=== PATIENT | female | born 1990 | race Caucasian/White ===

== ENCOUNTER 2018-10-31 10:09 | Emergency (ER) | payer SELFPAY ==
[2018-10-31] MEDS ORDERED: KETOROLAC 30 MG/ML INJ ONE (11:00)
[2018-10-31 11:14] LABS: ALT/SGPT 17 U/L (12-78); AST/SGOT 11 U/L (15-37); Albumin 3.5 g/dL (3.4-5.0); Alkaline Phosphatase 69 U/L (45-117); BUN Blood Urea Nitrogen 16 mg/dL (7-18); Bicarbonate 25 mmol/L (21-32); Bilirubin Direct 0.2 mg/dL (0-0.2); Bilirubin Total 0.8 mg/dL (0.2-1.0); Glucose Level 90 mg/dL (74-106); Lipase 82 U/L (73-393); Potassium 4.1 mmol/L (3.5-5.1); Protein, Total 7.7 g/dL (6.4-8.2); Sodium Level 138 mmol/L (136-145)
[2018-10-31 11:20] LABS: Urine Bacteria <20 /HPF (<20); Urine RBC NONE SEEN /HPF (NONE SEEN)
[2018-10-31 11:21] LABS: Urine Culture Reflex Order NOT NEEDED
[2018-10-31 11:23] LABS: Urine Blood NEGATIVE (NEG); Urine Glucose NEGATIVE (NEG); Urine Protein NEGATIVE (NEG); Urine Specific Gravity 1.025 (1.005-1.030); Urine pH 6.5 (5.0-7.0)
[2018-10-31 11:28] LABS: Absolute Lymphocytes (CBC) 1.7 K/uL (0.7-4.9); Absolute Monocytes 0.7 K/uL (0.1-1.3); Absolute Neutrophil 6.8 K/uL (1.8-8.0); Basophils % 0.5 % (0-1.3); Hematocrit 38.8 % (36.0-45.0); Lymphocytes % 18.3 % (15.3-44.8); MCH 30.4 pg (27.0-35.0); Monocytes % 7.4 % (3.3-12.3); RBC Red Blood Cell Count 4.46 M/uL (3.86-4.86)
--- NOTE | 2018-10-31 11:46 | RAD REPORT ---
EXAM DESCRIPTION: CTAbdomen Pelvis W Contrast - 10/31/2018 11:28 am CLINICAL HISTORY: Abdominal pain. rlq no oc;Abd pain COMPARISON: Stone Protocol dated 05/21/2017 TECHNIQUE: Biphasic CT imaging of the abdomen and pelvis was performed with 100 ml non-ionic IV cont rast. All CT scans are performed using dose optimization technique as appropriate and may include automated exposure control or mA/KV adjustment according to patient size. FINDINGS: The lung bases are clear. The liver, spleen, pancreas, adrenal glands and kidneys are within normal limits. 7 mm cyst is presen t lateral right kidney. No bowel obstruction, free air, free fluid or abscess. Subtle fat stranding is seen in the right lowe r quadrant adjacent to the cecum. The appendix is normal. No evidence of significant lymphadenopathy . No suspicious bony findings. Bilateral adnexal cystic lesions are present, largest on the left measur ing 3.7 cm. IMPRESSION: Subtle inflammatory changes are seen in the fat adjacent to the cecum. This may be relat ed to mild/early cecal inflammation/ typhlitis. No evidence of appendicitis.
--- NOTE | 2018-10-31 13:37 | ER ---
Nurse's Notes [facility] Name: Angle Goddard Age: 27 yrs Sex: Female : 1990 Arrival Date: 10/31/2018 Time: 10:10 Bed 17 Private MD: Diagnosis: Lower abdominal pain, unspecified Presentation: 10/31 10:38 Presenting complaint: Patient states: RLQ pain since yesterday. Transition of care: ss patient was not received from another setting of care. Onset of symptoms was September 30, 2018. Risk Assessment: Do you want to hurt yourself or someone else? Patient reports no desire to harm self or others. Initial Sepsis Screen: Does the patient meet any 2 criteria? No. Patient's initial sepsis screen is negative. Does the patient have a suspected source of infection? No. Patient's initial sepsis screen is negative. Care prior to arrival: None. 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 - Social history:: Smoking status: Patient/guardian denies using tobacco, Smoking status: . - Ebola Screening: : Patient denies exposure to infectious person Patient denies travel to an Ebola-affected area in the 21 days before illness onset Patient denies travel to an Ebola-affected area in the 21 days before illness onset. Screenin:39 Abuse screen: Denies threats or abuse. Nutritional screening: No deficits noted. tw2 Tuberculosis screening: No symptoms or risk factors identified. Fall Risk None identified. Assessment: 10:35 General: Appears in no apparent distress. Behavior is calm, cooperative, appropriate tw2 for age. Pain: Complains of pain in right lower quadrant. Neuro: Level of Consciousness is awake, alert, obeys commands, Oriented to person, place, time, situation. Cardiovascular: Heart tones S1 S2 Patient's skin is warm and dry. Respiratory: Airway is patent Respiratory effort is even, unlabored, Respiratory pattern is regular, symmetrical, Breath sounds are clear bilaterally. GI: Abdomen is flat, Bowel sounds present X 4 quads. Reports lower abdominal pain. : No signs and/or symptoms were reported regarding the genitourinary system. EENT: No signs and/or symptoms were reported regarding the EENT system. Derm: No signs and/or symptoms reported regarding the dermatologic system. Musculoskeletal: Range of motion: intact in all extremities. 12:30 Reassessment: Patient appears in no apparent distress at this time. No changes from tw2 previously documented assessment. Patient and/or family updated on plan of care and expected duration. Pain level reassessed. Patient is alert, oriented x 3, equal unlabored respirations, skin warm/dry/pink. 13:24 Reassessment: Patient appears in no apparent distress at this time. No changes from tw2 previously documented assessment. Patient and/or family updated on plan of care and expected duration. Pain level reassessed. Patient is alert, oriented x 3, equal unlabored respirations, skin warm/dry/pink. 13:43 Reassessment: Patient appears in no apparent distress at this time. No changes from tw2 previously documented assessment. Patient and/or family updated on plan of care and expected duration. Pain level reassessed. Patient is alert, oriented x 3, equal unlabored respirations, skin warm/dry/pink. General: Appears Behavior is. Vital Signs: 10:38 BP 122 / 86; Pulse 75; Resp 16; Temp 97.6(TE); Pulse Ox 98% on R/A; Weight 95.71 kg; Height 5 ft. 5 in. (165.10 cm); Pain 8/10; 12:30 BP 103 / 72; Pulse 61; Resp 17; Pulse Ox 99% on R/A; tw2 13:22 BP 106 / 76; Pulse 67; Resp 17; Pulse Ox 100% on R/A; tw2 10:38 Body Mass Index 35.11 (95.71 kg, 165.10 cm) ED Course: 10:10 Patient arrived in ED. rg4 10:36 Glenroy Miles MD is Attending Physician. gs 10:39 Nora Post RN is Primary Nurse. tw2 10:39 Triage completed. ss 10:39 Bed in low position. Call light in reach. Pulse ox on. NIBP on. tw2 10:46 Inserted saline lock: 22 gauge in right antecubital area, using aseptic technique. tw2 Blood collected. IV discontinued, intact, bleeding controlled, No redness/swelling at site. Pressure dressing applied. 11:29 CT completed. Patient tolerated procedure well. Patient moved to MI via wheelchair. Patient moved back from MI. 13:22 Arm band placed on. tw2 13:23 Urine Microscopic Only Sent. tw2 13:42 No provider procedures requiring assistance completed. tw2 Administered Medications: 10:55 Drug: TORadol 15 mg Route: IVP; Site: right antecubital; tw2 13:23 Follow up: Response: No adverse reaction tw2 Outcome: 13:37 Discharge ordered by . 13:43 Discharged to home ambulatory, with significant other. tw2 13:43 Condition: stable 13:43 Discharge instructions given to patient, significant other, Instructed on discharge instructions, follow up and referral plans. medication usage, Demonstrated understanding of instructions, follow-up care, medications, Prescriptions given X 2. 13:44 Patient left the ED. tw2 Signatures: Autumn Patel Shelby, RN RN Nora Post RN RN tw2 Sandy Gold 4 Glenroy Miles MD MD
--- NOTE | 2018-10-31 13:37 | EDPHYS ---
Physician Documentation [facility] Name: Angle Goddard Age: 27 yrs Sex: Female : 1990 Arrival Date: 10/31/2018 Time: 10:10 Bed 17 Private MD: ED Physician Glenroy Miles HPI: 10/31 13:26 This 27 yrs old Female presents to ER via Ambulatory with complaints of Low gs Abdominal Pain. 13:33 The patient presents with abdominal pain right lower quadrant. Onset: The gs symptoms/episode began/occurred yesterday. The symptoms do not radiate. Associated signs and symptoms: Pertinent negatives: nausea and vomiting, diarrhea, dysuria, fever. The symptoms are described as achy, crampy. Modifying factors: the symptoms are aggravated by coughing. Severity of pain: At its worst the pain was moderate in the emergency department the pain is unchanged. The patient has not experienced similar symptoms in the past. The patient has not recently seen a physician. 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 - Social history:: Smoking status: Patient/guardian denies using tobacco, Smoking status: . - Ebola Screening: : Patient denies exposure to infectious person Patient denies travel to an Ebola-affected area in the 21 days before illness onset Patient denies travel to an Ebola-affected area in the 21 days before illness onset. ROS: 13:33 All other systems are negative. gs Exam: 13:33 Head/Face: Normocephalic, atraumatic. Eyes: Pupils equal round and reactive to light, gs extra-ocular motions intact. Lids and lashes normal. Conjunctiva and sclera are non-icteric and not injected. Cornea within normal limits. Periorbital areas with no swelling, redness, or edema. ENT: Nares patent. No nasal discharge, no septal abnormalities noted. Tympanic membranes are normal and external auditory canals are clear. Oropharynx with no redness, swelling, or masses, exudates, or evidence of obstruction, uvula midline. Mucous membranes moist. Neck: Trachea midline, no thyromegaly or masses palpated, and no cervical lymphadenopathy. Supple, full range of motion without nuchal rigidity, or vertebral point tenderness. No Meningismus. Chest/axilla: Normal chest wall appearance and motion. Nontender with no deformity. No lesions are appreciated. Cardiovascular: Regular rate and rhythm with a normal S1 and S2. No gallops, murmurs, or rubs. Normal PMI, no JVD. No pulse deficits. Respiratory: Lungs have equal breath sounds bilaterally, clear to auscultation and percussion. No rales, rhonchi or wheezes noted. No increased work of breathing, no retractions or nasal flaring. Back: No spinal tenderness. No costovertebral tenderness. Full range of motion. Skin: Warm, dry with normal turgor. Normal color with no rashes, no lesions, and no evidence of cellulitis. MS/ Extremity: Pulses equal, no cyanosis. Neurovascular intact. Full, normal range of motion. Neuro: Awake and alert, GCS 15, oriented to person, place, time, and situation. Cranial nerves II-XII grossly intact. Motor strength 5/5 in all extremities. Sensory grossly intact. Cerebellar exam normal. Normal gait. 13:33 Constitutional: The patient appears alert, awake, uncomfortable. 13:33 Abdomen/GI: Palpation: moderate abdominal tenderness, in the right lower quadrant, rebound tenderness, is not appreciated. Vital Signs: 10:38 BP 122 / 86; Pulse 75; Resp 16; Temp 97.6(TE); Pulse Ox 98% on R/A; Weight 95.71 kg; ss Height 5 ft. 5 in. (165.10 cm); Pain 8/10; 12:30 BP 103 / 72; Pulse 61; Resp 17; Pulse Ox 99% on R/A; tw2 13:22 BP 106 / 76; Pulse 67; Resp 17; Pulse Ox 100% on R/A; tw2 10:38 Body Mass Index 35.11 (95.71 kg, 165.10 cm) MDM: 10:44 Patient medically screened. 13:33 Differential diagnosis: appendicitis, bowel obstruction, non-specific abd pain, gs pancreatitis, Peritonitis. Data reviewed: vital signs, nurses notes. Counseling: I had a detailed discussion with the patient and/or guardian regarding: the historical points, exam findings, and any diagnostic results supporting the discharge/admit diagnosis, lab results, radiology results. Response to treatment: the patient's symptoms have markedly improved after treatment. Physician consultation: Bartolo Johnston MD and will see patient in consult. ED course: discussed possibility of early appy and need for surgery, also possible of early caecitis and need for abx. pt understands riskd and benefits of hospitalization, prefers going home taking abx coming for reexam. giving warnings s/s to return. 10/31 10:44 Order name: Urine Microscopic Only 10/31 10:45 Order name: Basic Metabolic Panel 10/31 10:45 Order name: CBC with Diff 10/31 10:45 Order name: Hepatic Function 10/31 10:45 Order name: Lipase 10/31 11:14 Order name: Urine Dipstick--Ancillary (enter results) 10/31 11:14 Order name: Urine --Ancillary (enter results) 10/31 11:14 Order name: Basic Metabolic Panel; Complete Time: 12:42 EDNV 10/31 11:14 Order name: Liver (Hepatic) Function; Complete Time: 12:42 EDNV 10/31 11:14 Order name: Lipase; Complete Time: 12:42 EDNV 10/31 11:21 Order name: Urine Microscopic Only; Complete Time: 12:42 EDNV 10/31 11:23 Order name: Urine --Ancillary; Complete Time: 12:42 EDNV 10/31 11:23 Order name: Urine Dipstick-Ancillary; Complete Time: 12:42 EDNV 10/31 11:30 Order name: CBC with Automated Diff; Complete Time: 12:42 EDNV 10/31 10:44 Order name: Urine Test (obtain specimen); Complete Time: 13:23 10/31 10:44 Order name: Urine Dipstick-Ancillary (obtain specimen); Complete Time: 13:24 10/31 10:45 Order name: IV Saline Lock; Complete Time: 11:00 10/31 10:45 Order name: Labs collected and sent; Complete Time: 11:00 10/31 10:45 Order name: CT Abd/Pelvis - W/Contrast 10/31 11:47 Order name: CT; Complete Time: 12:42 EDMS Administered Medications: 10:55 Drug: TORadol 15 mg Route: IVP; Site: right antecubital; tw2 13:23 Follow up: Response: No adverse reaction tw2 Disposition: 10/31/18 13:37 Discharged to Home. Impression: Lower abdominal pain, unspecified. - Condition is Stable. - Discharge Instructions: Abdominal Pain, Adult. - Prescriptions for Flagyl 500 mg Oral Tablet - take 1 tablet by ORAL route every 6 hours for 7 days; 28 tablet. Keflex 500 mg Oral Capsule - take 1 capsule by ORAL route every 6 hours for 7 days; 28 capsule. - Work release form, Family Work Release, Medication Reconciliation Form, Thank You Letter, Antibiotic Education, Prescription Opioid Use form. - Follow up: Private Physician; When: 1 - 2 days; Reason: Re-evaluation by your physician. Signatures: Dispatcher [employer] EDNV Cassandra Andrews RN RN Nora Post RN RN tw2 Glenroy Miles MD MD Corrections: (The following items were deleted from the chart) 13:44 13:37 10/31/2018 13:37 Discharged to Home. Impression: Lower abdominal pain, tw2 unspecified. Condition is Stable. Forms are Work release form, Family Work Release, Medication Reconciliation Form, Thank You Letter, Antibiotic Education, Prescription Opioid Use. Follow up: Private Physician; When: 1 - 2 days; Reason: Re-evaluation by your physician.
[2018-10-31 13:57] VITALS: TEMP 97.6
[2018-10-31 13:59] VITALS: BP 106/76; O2SAT 100
== END 2018-10-31 13:44 | disposition home or self-care (01) ==
LOC: ER 10:09
DX: R10.31 Right lower quadrant pain (principal)
CPT/HCPCS: 36415; 74177; 80048; 80076; 81003; 81015; 81025; 83690; 85025; 96374; 99284; Q9967

== ENCOUNTER 2018-11-01 19:03 | Emergency (ER) | payer SELFPAY ==
[2018-11-01 19:53] LABS: Urine Bacteria <20 /HPF (<20); Urine Mucus SLIGHT /HPF (NONE SEEN); Urine RBC <5 /HPF (NONE SEEN)
[2018-11-01 19:54] LABS: Urine Culture Reflex Order REFLEXED
[2018-11-01 20:01] LABS: Absolute Lymphocytes (CBC) 1.8 K/uL (0.7-4.9); Absolute Neutrophil 5.2 K/uL (1.8-8.0); Basophils % 0.7 % (0-1.3); Eosinophils % 2.8 % (0-4.4); Hematocrit 39.1 % (36.0-45.0); Lymphocytes % 21.9 % (15.3-44.8); MCV 87.1 fL (80-100); MPV 8.7 fL (7.6-11.3); RBC Red Blood Cell Count 4.49 M/uL (3.86-4.86)
[2018-11-01] MEDS ORDERED: CEFOXITIN/SWI 1gm 1 GM/10 ML SYR ONE (20:10)
[2018-11-01 20:15] LABS: ALT/SGPT 10 U/L (12-78); AST/SGOT 10 U/L (15-37); Albumin 3.5 g/dL (3.4-5.0); Alkaline Phosphatase 64 U/L (45-117); BUN Blood Urea Nitrogen 11 mg/dL (7-18); Bicarbonate 28 mmol/L (21-32); Bilirubin Direct 0.2 mg/dL (0-0.2); Bilirubin Total 0.6 mg/dL (0.2-1.0); Glucose Level 73 mg/dL (74-106); Lipase 85 U/L (73-393); Potassium 3.9 mmol/L (3.5-5.1); Protein, Total 7.5 g/dL (6.4-8.2); Sodium Level 142 mmol/L (136-145)
[2018-11-01 20:26] LABS: Urine Blood NEGATIVE (NEG); Urine Glucose NEGATIVE (NEG); Urine Protein NEGATIVE (NEG); Urine Specific Gravity >1.030 (1.005-1.030); Urine pH 5.5 (5.0-7.0)
--- NOTE | 2018-11-01 21:01 | RAD REPORT ---
EXAM DESCRIPTION: CT - Abdomen Pelvis W Contrast - 11/01/2018 8:38 pm CLINICAL HISTORY: Abdominal pain with nausea. COMPARISON: 10/31/2018 TECHNIQUE: Computed axial tomography of the abdomen pelvis was obtained. 100 cc Isovue-300 was admin istered intravenously. Oral contrast was not requested which limits evaluation of bowel. All CT scans are performed using dose optimization technique as appropriate and may include automated exposure control or mA/KV adjustment according to patient size. FINDINGS: The liver, spleen, pancreas, adrenal and kidneys appear unremarkable. Small right renal cy st noted. The appendix is normal Mild stranding adjacent to the cecum. There is a probable subtle 16 millimeter fatty mass. This likel y represents epiploic appendagitis Bilateral ovarian cystic mass is again demonstrated with small amount of free fluid Tiny umbilical hernia IMPRESSION: Cecal epiploic appendagitis suspected
--- NOTE | 2018-11-01 21:26 | ER ---
Nurse's Notes [facility] Name: Angle Goddard Age: 27 yrs Sex: Female : 1990 Arrival Date: 11/01/2018 Time: 19:07 Bed 24 Private MD: Diagnosis: Lower abdominal pain, unspecified Presentation: 11/01 19:16 Presenting complaint: Patient states: abd pain increased from yesterday. pt seen in ER ak1 yesterday given flagyl and keflex, pt stated increased pain today. Transition of care: patient was not received from another setting of care. Onset of symptoms is unknown. Risk Assessment: Do you want to hurt yourself or someone else? Patient reports no desire to harm self or others. Initial Sepsis Screen: Does the patient meet any 2 criteria? No. Patient's initial sepsis screen is negative. Does the patient have a suspected source of infection? No. Patient's initial sepsis screen is negative. Care prior to arrival: None. 19:16 Method Of Arrival: Ambulatory ak1 19:16 Acuity: LICO 3 ak1 Triage Assessment: 19:17 General: Appears uncomfortable. ak1 21:59 General: Behavior is calm, cooperative. Pain: Complains of pain in abdomen. 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 - Social history:: Smoking status: Patient/guardian denies using tobacco. - Ebola Screening: : No symptoms or risks identified at this time. Screenin:59 Abuse screen: Denies threats or abuse. Denies injuries from another. Nutritional rv screening: No deficits noted. Tuberculosis screening: No symptoms or risk factors identified. Fall Risk None identified. Assessment: 21:59 GI: rv Vital Signs: 19:17 BP 107 / 76; Pulse 72; Resp 18; Temp 98.2; Pulse Ox 97% on R/A; Weight 95.25 kg (R); ak1 Height 5 ft. 5 in. (165.10 cm) (R); Pain 9/10; 21:42 BP 100 / 64; Pulse 70; Resp 16; Pulse Ox 99% on R/A; mt 19:17 Body Mass Index 34.95 (95.25 kg, 165.10 cm) ak1 ED Course: 19:07 Patient arrived in ED. ds1 19:16 Triage completed. ak1 19:17 Arm band placed on Patient placed in an exam room, on a stretcher, Patient notified of ak1 wait time. 19:23 Catie Mcmanus, RN is Primary Nurse. 19:25 Glenroy Miles MD is Attending Physician. 20:11 Radiology exam delayed due to lab results not completed at this time. (BUN/Creatinine) fl test not completed at this time. 20:38 CT Abd/Pelvis - W/Contrast In Process Unspecified. EDMS 20:43 CT completed. Patient tolerated procedure well. Patient moved back from CT. fl 21:59 No provider procedures requiring assistance completed. IV discontinued, bleeding rv controlled, No redness/swelling at site. Pressure dressing applied. 22:00 Patient has correct armband on for positive identification. Bed in low position. Call rv light in reach. Side rails up X 1. Pulse ox on. NIBP on. Administered Medications: 20:04 Drug: cefOXitin 1 grams Route: IVPB; Infused Over: 30 mins; Site: right antecubital; aj 21:58 Follow up: IV Status: Completed infusion rv 21:57 Drug: TORadol 30 mg Route: IVP; Site: right antecubital; rv 21:58 Follow up: Response: Medication administered at discharge. rv Outcome: 21:25 Discharge ordered by MD. 21:59 Discharged to home ambulatory. rv 21:59 Condition: stable 21:59 Discharge instructions given to patient, Instructed on discharge instructions, follow up and referral plans. medication usage, Demonstrated understanding of instructions, follow-up care, medications, Prescriptions given X 2. 22:00 Patient left the ED. rv Signatures: Dispatcher [employer] EDMS Catie Mcmanus, RN Ivonne Robbins ds Alicia Lind RN RN [facility] Percy Tan Moriah hi Glenroy Miles MD MD Curtis Joiner RN RN rv
--- NOTE | 2018-11-01 21:26 | EDPHYS ---
Physician Documentation [facility] Name: Angle Goddard Age: 27 yrs Sex: Female : 1990 Arrival Date: 11/01/2018 Time: 19:07 Bed 24 Private MD: ED Physician Glenroy Miles HPI: 11/02 19:46 This 27 yrs old Female presents to ER via Ambulatory with complaints of gs Abdominal Pain. 19:46 Onset: The symptoms/episode began/occurred 2 day(s) ago, and became persistent. gs Associated signs and symptoms: Pertinent positives: nausea, Pertinent negatives: fever. The symptoms are described as crampy. Severity of pain: At its worst the pain was moderate in the emergency department the pain is unchanged. The patient has been recently seen at the [facility] Emergency Department, yesterday. 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 - Social history:: Smoking status: Patient/guardian denies using tobacco. - Ebola Screening: : No symptoms or risks identified at this time. ROS: 11/02 19:46 All other systems are negative. gs Exam: 19:46 Head/Face: Normocephalic, atraumatic. Eyes: Pupils equal round and reactive to light, gs extra-ocular motions intact. Lids and lashes normal. Conjunctiva and sclera are non-icteric and not injected. Cornea within normal limits. Periorbital areas with no swelling, redness, or edema. ENT: Nares patent. No nasal discharge, no septal abnormalities noted. Tympanic membranes are normal and external auditory canals are clear. Oropharynx with no redness, swelling, or masses, exudates, or evidence of obstruction, uvula midline. Mucous membranes moist. Neck: Trachea midline, no thyromegaly or masses palpated, and no cervical lymphadenopathy. Supple, full range of motion without nuchal rigidity, or vertebral point tenderness. No Meningismus. Chest/axilla: Normal chest wall appearance and motion. Nontender with no deformity. No lesions are appreciated. Cardiovascular: Regular rate and rhythm with a normal S1 and S2. No gallops, murmurs, or rubs. Normal PMI, no JVD. No pulse deficits. Respiratory: Lungs have equal breath sounds bilaterally, clear to auscultation and percussion. No rales, rhonchi or wheezes noted. No increased work of breathing, no retractions or nasal flaring. Back: No spinal tenderness. No costovertebral tenderness. Full range of motion. Skin: Warm, dry with normal turgor. Normal color with no rashes, no lesions, and no evidence of cellulitis. MS/ Extremity: Pulses equal, no cyanosis. Neurovascular intact. Full, normal range of motion. Neuro: Awake and alert, GCS 15, oriented to person, place, time, and situation. Cranial nerves II-XII grossly intact. Motor strength 5/5 in all extremities. Sensory grossly intact. Cerebellar exam normal. Normal gait. 19:46 Constitutional: The patient appears alert, awake, uncomfortable. 19:46 Abdomen/GI: Palpation: moderate abdominal tenderness, in the right lower quadrant, rebound tenderness, is not appreciated. Vital Signs: 11/01 19:17 BP 107 / 76; Pulse 72; Resp 18; Temp 98.2; Pulse Ox 97% on R/A; Weight 95.25 kg (R); ak1 Height 5 ft. 5 in. (165.10 cm) (R); Pain 9/10; 21:42 BP 100 / 64; Pulse 70; Resp 16; Pulse Ox 99% on R/A; mt 19:17 Body Mass Index 34.95 (95.25 kg, 165.10 cm) ak1 MDM: 19:35 Patient medically screened. 11/02 19:46 Differential diagnosis: appendicitis, bowel obstruction, non-specific abd pain. Data reviewed: vital signs, nurses notes, lab test result(s), radiologic studies. Physician consultation: Ricardo Parikh MD regarding patient's condition, would like further tests performed, CT scan, pre-operative labs. 19:46 Counseling: I had a detailed discussion with the patient and/or guardian regarding: the historical points, exam findings, and any diagnostic results supporting the discharge/admit diagnosis, radiology results, the need for outpatient follow up. Response to treatment: the patient's symptoms have markedly improved after treatment, and as a result, I will discharge patient. 11/01 19:16 Order name: Urine Culture snw 11/01 19:16 Order name: Urine Microscopic Only; Complete Time: 20:54 snw 11/01 19:38 Order name: Basic Metabolic Panel; Complete Time: 20:54 gs 11/01 19:38 Order name: CBC with Diff; Complete Time: 20:54 gs 11/01 19:38 Order name: Hepatic Function; Complete Time: 20:54 gs 11/01 19:38 Order name: Lipase; Complete Time: 20:54 gs 11/01 19:16 Order name: Urine Test (obtain specimen); Complete Time: 19:26 snw 11/01 19:16 Order name: Urine Dipstick-Ancillary (obtain specimen); Complete Time: 19:26 snw 11/01 19:38 Order name: IV Saline Lock; Complete Time: 19:47 gs 11/01 19:38 Order name: CT Abd/Pelvis - W/Contrast; Complete Time: 21:03 gs 11/01 19:54 Order name: Urine Dipstick--Ancillary (enter results); Complete Time: 20:54 ms 11/01 19:54 Order name: Urine --Ancillary (enter results); Complete Time: 20:54 ms 11/01 19:38 Order name: Labs collected and sent; Complete Time: 19:47 gs Administered Medications: 11/01 20:04 Drug: cefOXitin 1 grams Route: IVPB; Infused Over: 30 mins; Site: right antecubital; aj 21:58 Follow up: IV Status: Completed infusion rv 21:57 Drug: TORadol 30 mg Route: IVP; Site: right antecubital; rv 21:58 Follow up: Response: Medication administered at discharge. rv Disposition: 11/01/18 21:25 Discharged to Home. Impression: Lower abdominal pain, unspecified. - Condition is Stable. - Discharge Instructions: Abdominal Pain, Adult. - Prescriptions for Naprosyn 500 mg Oral Tablet - take 1 tablet by ORAL route 2 times per day take with food; 20 tablet. Tylenol- Codeine #4 300-60 mg Oral Tablet - take 1 tablet by ORAL route every 6 hours As needed; 10 tablet. - Medication Reconciliation Form, Thank You Letter, Antibiotic Education, Prescription Opioid Use, Work release form form. - Follow up: Private Physician; When: 2 - 3 days; Reason: Re-evaluation by your physician. Signatures: Dispatcher [employer] Catie Busby, RN RN Mame Thompson, DANIELA-C GATHERING MACHINE SETTER-Alicia Francois RN RN ak1 Glenroy Miles MD MD gs Curtis Joiner RN RN rv Corrections: (The following items were deleted from the chart) 22:00 21:25 11/01/2018 21:25 Discharged to Home. Impression: Lower abdominal pain, rv unspecified. Condition is Stable. Forms are Medication Reconciliation Form, Thank You Letter, Antibiotic Education, Prescription Opioid Use. Follow up: Private Physician; When: 2 - 3 days; Reason: Re-evaluation by your physician. gs
[2018-11-01] MEDS ORDERED: KETOROLAC 30 MG/ML INJ ONE (21:57)
[2018-11-01 22:22] VITALS: TEMP 98.2
[2018-11-01 22:23] VITALS: BP 100/64; O2SAT 99
== END 2018-11-01 22:00 | disposition home or self-care (01) ==
LOC: ER 19:03
DX: R10.31 Right lower quadrant pain (principal)
CPT/HCPCS: 36415; 74177; 80048; 80076; 81003; 81015; 81025; 83690; 85025; 87086; 87088; 96365; 96366; 96375; 99284; Q9967

== ENCOUNTER 2019-03-26 22:16 | Emergency (ER) | payer SELFPAY ==
--- NOTE | 2019-03-26 23:27 | EDPHYS ---
Physician Documentation [facility] Name: Angle Goddard Age: 28 yrs Sex: Female : 1990 Arrival Date: 03/26/2019 Time: 22:19 Bed 11 Private MD: ED Physician Wade Trotter HPI: 03/26 23:26 This 28 yrs old Female presents to ER via Ambulatory with complaints of Ear pm1 Pain. 23:26 The patient presents with pain. The complaints affect the right ear. Onset: The pm1 symptoms/episode began/occurred 5 day(s) ago. Modifying factors: The symptoms are alleviated by nothing, the symptoms are aggravated by nothing. Associated signs and symptoms: Pertinent negatives: fever, rhinorrhea, sore throat. Severity of symptoms: in the emergency department the symptoms are worse. The patient has experienced similar episodes in the past, a few times. The patient has not recently seen a physician. Historical: - Allergies: 22:24 No Known Allergies; la1 - PMHx: 22:24 Asthma; la1 - Immunization history:: Adult Immunizations up to date. - Social history:: Smoking status: Patient/guardian denies using tobacco. - Ebola Screening: : No symptoms or risks identified at this time. ROS: 23:26 Constitutional: Negative for fever, chills, and weight loss, Eyes: Negative for injury, pm1 pain, redness, and discharge. 23:26 Neck: Negative for injury, pain, and swelling, Cardiovascular: Negative for chest pain, palpitations, and edema, Respiratory: Negative for shortness of breath, cough, wheezing, and pleuritic chest pain, Abdomen/GI: Negative for abdominal pain, nausea, vomiting, diarrhea, and constipation, Back: Negative for injury and pain, : Negative for injury, bleeding, discharge, and swelling, MS/Extremity: Negative for injury and deformity, Skin: Negative for injury, rash, and discoloration, Neuro: Negative for headache, weakness, numbness, tingling, and seizure. 23:26 ENT: Positive for ear pain, Negative for drainage from ear(s), rhinorrhea, sinus congestion, sinus pain, sore throat, difficulty swallowing, difficulty handling secretions. Exam: 23:26 Constitutional: This is a well developed, well nourished patient who is awake, alert, pm1 and in no acute distress. Head/Face: Normocephalic, atraumatic. Eyes: Pupils equal round and reactive to light, extra-ocular motions intact. Lids and lashes normal. Conjunctiva and sclera are non-icteric and not injected. Cornea within normal limits. Periorbital areas with no swelling, redness, or edema. 23:26 Neck: Trachea midline, no thyromegaly or masses palpated, and no cervical lymphadenopathy. Supple, full range of motion without nuchal rigidity, or vertebral point tenderness. No Meningismus. Chest/axilla: Normal chest wall appearance and motion. Nontender with no deformity. No lesions are appreciated. Cardiovascular: Regular rate and rhythm with a normal S1 and S2. No gallops, murmurs, or rubs. Normal PMI, no JVD. No pulse deficits. Respiratory: Lungs have equal breath sounds bilaterally, clear to auscultation and percussion. No rales, rhonchi or wheezes noted. No increased work of breathing, no retractions or nasal flaring. Abdomen/GI: Soft, non-tender, with normal bowel sounds. No distension or tympany. No guarding or rebound. No evidence of tenderness throughout. Back: No spinal tenderness. No costovertebral tenderness. Full range of motion. Skin: Warm, dry with normal turgor. Normal color with no rashes, no lesions, and no evidence of cellulitis. MS/ Extremity: Pulses equal, no cyanosis. Neurovascular intact. Full, normal range of motion. 23:26 ENT: External ear(s): are unremarkable, Ear canal(s): erythema, that is minimal, of the right canal, swelling, that is minimal, of the right canal, TM's: bulging, on the right, erythema, that is moderate, on the right, Examination of the other ear shows no obvious abnormality, Nose: is normal, Mouth: is normal, Posterior pharynx: is normal. 23:26 Neuro: Orientation: is normal, Motor: is normal, moves all fours, Gait: is steady, at a normal pace, without difficulty. Vital Signs: 22:24 Pulse 61; Resp 16; Temp 97.8; Pulse Ox 98% on R/A; Weight 92.99 kg; Height 5 ft. 5 in. la1 (165.10 cm); 22:25 BP 107 / 69; la1 22:24 Body Mass Index 34.11 (92.99 kg, 165.10 cm) la1 MDM: 23:22 Patient medically screened. [facility] 23:26 Data reviewed: vital signs. Data interpreted: Pulse oximetry: on room air is 98 %. pm1 Interpretation: normal. Counseling: I had a detailed discussion with the patient and/or guardian regarding: the historical points, exam findings, and any diagnostic results supporting the discharge/admit diagnosis, the need for outpatient follow up, to return to the emergency department if symptoms worsen or persist or if there are any questions or concerns that arise at home. Administered Medications: No medications were administered Disposition: 03/26/19 23:27 Discharged to Home. Impression: Otitis media, unspecified, right ear, Unspecified otitis externa, right ear. - Condition is Stable. - Discharge Instructions: Ear Drops, Adult, Otitis Media, Adult, Otitis Externa. - Prescriptions for Cortisporin 3.5- 10,000-1 mg/mL-unit/mL-% Otic solution - instill 4 drop by OTIC route 4 times per day for 10 days; 1 bottle. Amoxicillin 500 mg Oral Capsule - take 1 capsule by ORAL route every 8 hours for 10 days; 30 tablet. Tramadol 50 mg Oral Tablet - take 1 tablet by ORAL route every 8 hours as needed; 12 tablet. - Medication Reconciliation Form, Thank You Letter, Antibiotic Education, Prescription Opioid Use form. - Work release form (03/27/19 07:09). ar5 - Follow up: Emergency Department; When: As needed; Reason: Worsening of condition. Follow up: Private Physician; When: 2 - 3 days; Reason: Recheck today's complaints, Continuance of care, Re-evaluation by your physician. - Problem is new. - Symptoms have improved. Addendum: 03/28/2019 11:16 Co-signature as Attending Physician, Wade Trotter MD I agree with the assessment and c reyes plan of care. Signatures: Wade Trotter MD MD cha Attema, Lee, RN RN la1 Mohan Martinez, HOISTER HOISTER pm1 Ruba Trinh ar5 Corrections: (The following items were deleted from the chart) 03/26 23:27 23:27 03/26/2019 23:27 Discharged to Home. Impression: Otitis media, unspecified, right pm1 ear; Unspecified otitis externa, right ear. Condition is Stable. Forms are Medication Reconciliation Form, Thank You Letter, Antibiotic Education, Prescription Opioid Use. Follow up: Emergency Department; When: As needed; Reason: Worsening of condition. Follow up: Private Physician; When: 2 - 3 days; Reason: Recheck today's complaints, Continuance of care, Re-evaluation by your physician. pm1 23:34 23:27 03/26/2019 23:27 Discharged to Home. Impression: Otitis media, unspecified, right la1 ear; Unspecified otitis externa, right ear. Condition is Stable. Forms are Medication Reconciliation Form, Thank You Letter, Antibiotic Education, Prescription Opioid Use. Follow up: Emergency Department; When: As needed; Reason: Worsening of condition. Follow up: Private Physician; When: 2 - 3 days; Reason: Recheck today's complaints, Continuance of care, Re-evaluation by your physician. Problem is new. Symptoms have improved. pm1
--- NOTE | 2019-03-26 23:27 | ER ---
Nurse's Notes [facility] Name: Angle Goddard Age: 28 yrs Sex: Female : 1990 Arrival Date: 03/26/2019 Time: 22:19 Bed 11 Private MD: Diagnosis: Otitis media, unspecified, right ear;Unspecified otitis externa, right ear Presentation: 03/26 22:24 Presenting complaint: Patient states: right ear pain for 5 days. Transition of care: la1 patient was not received from another setting of care. Onset of symptoms was March 26, 2019. Risk Assessment: Do you want to hurt yourself or someone else? Patient reports no desire to harm self or others. Initial Sepsis Screen: Does the patient meet any 2 criteria? No. Patient's initial sepsis screen is negative. Does the patient have a suspected source of infection? No. Patient's initial sepsis screen is negative. Care prior to arrival: None. 22:24 Method Of Arrival: Ambulatory la1 22:24 Acuity: LICO 5 la1 Historical: - Allergies: 22:24 No Known Allergies; la1 - PMHx: 22:24 Asthma; la1 - Immunization history:: Adult Immunizations up to date. - Social history:: Smoking status: Patient/guardian denies using tobacco. - Ebola Screening: : No symptoms or risks identified at this time. Screenin:25 Abuse screen: Denies threats or abuse. Nutritional screening: No deficits noted. la1 Tuberculosis screening: No symptoms or risk factors identified. Fall Risk None identified. Assessment: 22:24 General: Appears in no apparent distress. Behavior is calm, cooperative. Pain: la1 Complains of pain in right ear. Neuro: Level of Consciousness is awake, alert, obeys commands, Oriented to person, place, time, situation. Cardiovascular: Patient's skin is warm and dry. Respiratory: Airway is patent Respiratory effort is even, unlabored, Respiratory pattern is regular, symmetrical. GI: No signs and/or symptoms were reported involving the gastrointestinal system. : No signs and/or symptoms were reported regarding the genitourinary system. EENT: Reports pain in right ear. Vital Signs: 22:24 Pulse 61; Resp 16; Temp 97.8; Pulse Ox 98% on R/A; Weight 92.99 kg; Height 5 ft. 5 in. la1 (165.10 cm); 22:25 BP 107 / 69; la1 22:24 Body Mass Index 34.11 (92.99 kg, 165.10 cm) la1 ED Course: 22:19 Patient arrived in ED. am2 22:24 Triage completed. la1 22:24 Arm band placed on left wrist. la1 22:25 Patient has correct armband on for positive identification. la1 22:25 No provider procedures requiring assistance completed. Patient did not have IV access la1 during this emergency room visit. 23:21 Mohan Martinez NP is PHCP. pm1 23:21 Wade Trotter MD is Attending Physician. pm1 Administered Medications: No medications were administered Outcome: 23:27 Discharge ordered by . pm1 23:34 Discharged to home ambulatory. la1 23:34 Condition: stable 23:34 Discharge instructions given to patient, Instructed on discharge instructions, follow up and referral plans. medication usage, Demonstrated understanding of instructions, follow-up care, medications, Prescriptions given X 3. 23:34 Patient left the ED. la1 Signatures: Saqib Posadas RN RN la1 Mohan Martinez NP PROSTHETIC AIDES TEACHER pm1 Catie Alvares am2
[2019-03-26 23:44] VITALS: TEMP 97.8; O2SAT 98
[2019-03-26 23:45] VITALS: BP 107/69
== END 2019-03-26 23:34 | disposition home or self-care (01) ==
LOC: ER 22:16
DX: H66.91 Otitis media, unspecified, right ear (principal); H60.91 Unspecified otitis externa, right ear

== ENCOUNTER 2022-01-24 14:30 | Emergency (ER) | payer OTHER, SELFPAY ==
--- OUTSIDE RECORDS SUMMARY | 2022-01-24 14:33 | XMS REPORT | Continuity of Care Document ---
:1990 Author Organization [facility] t Address [address] [place] [address] Care Team Providers Name Role Phone Jax VERA Primary Care Physician Unavailable Hector Mckeon Attending Clinician Hector FELIX Attending Clinician Unavailable Payers Payer Name Policy Type Policy Number Effective Date Expiration Date S ource Advance Directives Directive Decision Effective Termination Comments Source Date Date Healthcare Agents on N/A Univ ersity FileNameRelationshipHealthcare [facility] Agent Medical RelationshipCommunicationDavid [place] CkFatherFirst [facility] [phone] (Home)Geena GaticaOtherFirst Alternate Health Care [phone] (Home) Problems Condition Condition Condition Status Onset Resolution Last Treating Co mments Source Name Details Category Date Date Treatment Clinician Date Elevated Elevated Disease Active 2020-11 Unive rs LFTs LFTs 2-01 ity of 00:00: [address] Well woman Well woman Disease Active U nivers exam with exam with 8-17 ity of routine routine 00:00: [place] gynecologi gynecologi Me dical naman exam naman exam Branch Irregular Irregular Disease Active Uni vers menstrual menstrual 8-17 ity of cycle cycle 00:00: [address] Obesity Obesity Disease Active Univers (BMI (BMI 8-17 ity of 30.0-34.9) 30.0[place]34.9[place] [address] [place] [address] Allergies, Adverse Reactions, Alerts Allergy Allergy Status Severity Reaction(s) Onset Inactive Treating Comm ents Source Name Type Date Date Clinician NO KNOWN Drug Active Univers ALLERGIE Class ity of [facility] Social History Social Habit Start Date Stop Date Quantity Comments Source Exposure to Not sure [facility] SARS-CoV-[address] [facility] [place] [place] (event) Branch Alcohol intake 2021-12-12 2021-12-12 Current University 00:00:00 00:00:00 non-drinker of [facility] alcohol [place] (finding) Tobacco use and 2017-07-15 2017-07-15 Never used Universit y of exposure 00:00:00 00:00:00 [facility] Sex Ass[birth year] Universit y of 00:00:00 00:00:00 [facility] Smoking Status Start Date Stop Date Source Never smoker [facility] Medications Ordered Filled Start Stop Current Ordering Indication Dosage Frequency Signature Comments Components Source Medication Medication Date Date Medication? Clinician (SIG) Name Name metroNIDAZO Yes [id number] 500mg Take 1 Univers LE 500 mg 1-18 tablet by ity o f tablet 00:00: mouth 2 [place] 00 (two) Medical times [place] daily. phentermine 2020-11 Yes Univer s 37.5 mg 0-13 ity of tablet 00:00: [place] 00 [facility] norgestimat Yes [id number] 1{tbl} Take 1 Univers e-ethinyl 8-17 tablet by ity o f estradiol 00:00: mouth [place] 0.18/0.215/ 00 daily. Medica l 0.25 mg-35 Branch mcg (28) tablet Immunizations Ordered Filled Immunization Date Status Comments Sourc e Immunization Name Name TDAP 2017-07-15 Completed University of 00:00:00 [facility] Procedures This patient has no known procedures. 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
[2022-01-24] MEDS ORDERED: TETANUS & DIPHTHERIA TOX,ADULT 0.5 ML VIAL ONE (15:05)
[2022-01-24] MEDS ORDERED: AMOX/K CLAV 875 MG TAB ONE (15:05)
--- NOTE | 2022-01-24 15:49 | EDPHYS ---
Physician Documentation [facility] Name: Angle Goddard Age: 31 yrs Sex: Female : 1990 Arrival Date: 01/24/2022 Time: 14:32 Bed 25 Private MD: ED Physician Nitish Perez HPI: 01/24 14:45 This 31 yrs old Female presents to ER via Ambulatory with complaints of Dog Bite. jmm 14:45 The patient was bitten on the dorsal aspect of distal phalanx of right index finger, jmm dorsal aspect of distal phalanx of right middle finger, palmar aspect of distal phalanx of right middle finger, palmar aspect of distal phalanx of right index finger, palmar aspect of distal phalanx of right thumb, right index fingernail, right thumbnail and right middle fingernail. Onset: The symptoms/episode began/occurred acutely. Secondary to the bite the patient reports Puncture. Associated signs and symptoms: Pertinent positives: erythema at site, pain at site, Pertinent negatives: bony tenderness, loss of consciousness, motor deficit, numbness distal to wound. This is a 31-year-old female with a history of asthma the presents emerged department with complaints of pain to her right first second and third fingers following a dog bite which occurred just prior to arrival. Patient states that she was attempting to free a dog from a fence. Patient is not UTD on tetanus immunizations. 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 - Social history:: Smoking status: Patient reports the use of cigarette tobacco products, smokes one-half pack cigarettes per day. ROS: 14:45 Constitutional: Negative for fever, chills, and weight loss, Cardiovascular: Negative jmm for chest pain, palpitations, and edema, Respiratory: Negative for shortness of breath, cough, wheezing, and pleuritic chest pain. 14:45 Skin: Positive for puncture. 14:45 All other systems are negative. Exam: 14:45 Constitutional: This is a well developed, well nourished patient who is awake, alert, jmm and in no acute distress. Head/Face: atraumatic. Eyes: EOMI, no conjunctival erythema appreciated ENT: Moist Mucus Membranes Neck: Trachea midline, Supple Chest/axilla: Normal chest wall appearance and motion. Cardiovascular: Regular rate and rhythm. No edema appreciated Respiratory: Normal respirations, no respiratory distress appreciated Abdomen/GI: Non distended, soft Back: Normal ROM 14:45 Musculoskeletal/extremity: FROM appreciated to the right 1st, 2nd, third phalanx, < 2 sec dist cap refill, full radial pulse, NVI. 14:45 Skin: Punctures noted to the palmar surface of the first second and third fingers, mild erythema noted, no active bleeding,. 14:45 Neuro: Orientation: is normal, Mentation: is normal, Memory: is normal, Gait: is steady. 14:45 Psych: Behavior/mood is pleasant, cooperative. Vital Signs: 14:39 BP 115 / 90; Pulse 77; Resp 18; Temp 98.8; Pulse Ox 99% on R/A; Weight 86.18 kg; Height ph 5 ft. 5 in. (165.10 cm); 15:05 BP 118 / 91; Pulse 74; Resp 18; Pulse Ox 100% on R/A; Pain 0/10; ld1 14:39 Body Mass Index 31.62 (86.18 kg, 165.10 cm) ph MDM: 14:45 Patient medically screened. [facility] 15:25 Data reviewed: vital signs, nurses notes. [facility] 15:47 Counseling: I had a detailed discussion with the patient and/or guardian regarding: the [facility] historical points, exam findings, and any diagnostic results supporting the discharge/admit diagnosis, the need for outpatient follow up, to return to the emergency department if symptoms worsen or persist or if there are any questions or concerns that arise at home. Administered Medications: 15:04 Drug: Tetanus-Diphtheria Toxoid Adult 0.5 ml {Supervisor Properties: [place] DEPT.. Exp: ld1 04/18/2023. Lot #: [id number]. } Route: IM; Site: left deltoid; 15:05 Follow up: Response: No adverse reaction ld1 15:04 Drug: Augmentin (Amoxicillin-Clavulanate) 875 mg Route: PO; ld1 15:05 Follow up: Response: No adverse reaction ld1 Disposition: 21:27 Co-signature as Attending Physician, Nitish Perez DO I agree with the assessment and ms3 plan of care. Disposition Summary: 01/24/22 15:48 Discharge Ordered Location: Home [facility] Condition: Stable jmm Diagnosis - Puncture of the Right 1st, 2nd, 3rd Finger [facility] Followup: [facility] - With: Private Physician - When: 2 - 3 days - Reason: Recheck today's complaints, Continuance of care, Re-evaluation by your physician Discharge Instructions: - Discharge Summary Sheet [facility] - Animal Bite, Adult [facility] Forms: - Medication Reconciliation Form [facility] - Thank You Letter [facility] - Antibiotic Education [facility] - Prescription Opioid Use [facility] Prescriptions: - Augmentin 875-125 mg Oral Tablet - take 1 tablet by ORAL route every 12 hours for 10 days; 20 tablet; Refills: 0, [facility] Product Selection Permitted Signatures: Landon Lynn PA PA jmm Hall, Patricia, RN RN Nitish Stratton DO DO ms3 Faviola Montalvo RN RN ld1
--- NOTE | 2022-01-24 15:49 | ER ---
Nurse's Notes [facility] Name: Angle Goddard Age: 31 yrs Sex: Female : 1990 Arrival Date: 01/24/2022 Time: 14:32 Bed 25 Private MD: Diagnosis: Puncture of the Right 1st, 2nd, 3rd Finger Presentation: 01/24 14:39 Chief complaint: Patient states: " There was a dog that had it's leg stuck in the fence ph in my backyard. I was trying to help it get it's leg out and it bit me." Small abrasions/lacerations sustained to R thumb, index and middle fingers. Pt states that she does not know who the dog belongs to. Coronavirus screen: Vaccine status: Patient reports being unvaccinated. Ebola Screen: No symptoms or risks identified at this time. Initial Sepsis Screen: Does the patient meet any 2 criteria? No. Patient's initial sepsis screen is negative. Does the patient have a suspected source of infection? No. Patient's initial sepsis screen is negative. Risk Assessment: Do you want to hurt yourself or someone else? Patient reports no desire to harm self or others. Onset of symptoms was January 24, 2022. 14:39 Method Of Arrival: Ambulatory 14:39 Acuity: LICO 4 ph Triage Assessment: 16:09 Bite description: bite sustained to right hand is superficial, by a dog, animal ld1 information: vaccination(s) is unknown. General: Appears in no apparent distress. comfortable, Behavior is calm, cooperative, appropriate for age. Neuro: Level of Consciousness is awake, alert, obeys commands, Oriented to person, place, time, situation. Cardiovascular: Capillary refill < 3 seconds Patient's skin is warm and dry. Respiratory: Airway is patent Respiratory effort is even, unlabored. 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 - Social history:: Smoking status: Patient reports the use of cigarette tobacco products, smokes one-half pack cigarettes per day. Screenin:05 Abuse screen: Denies threats or abuse. Denies injuries from another. Nutritional ld1 screening: No deficits noted. Tuberculosis screening: No symptoms or risk factors identified. Fall Risk None identified. Assessment: 15:05 General: Appears in no apparent distress. comfortable, Behavior is calm, cooperative, ld1 appropriate for age. Pain: Denies pain. Neuro: Level of Consciousness is awake, alert, obeys commands, Oriented to person, place, time, situation. Cardiovascular: Capillary refill < 3 seconds Patient's skin is warm and dry. Respiratory: Airway is patent Respiratory effort is even, unlabored. GI: Abdomen is flat, non-distended. : No signs and/or symptoms were reported regarding the genitourinary system. EENT: No signs and/or symptoms were reported regarding the EENT system. Derm: Skin Dog bite to right thumb Skin is pink, warm \\T\\ dry. Musculoskeletal: No signs and/or symptoms reported regarding the musculoskeletal system. Vital Signs: 14:39 BP 115 / 90; Pulse 77; Resp 18; Temp 98.8; Pulse Ox 99% on R/A; Weight 86.18 kg; Height ph 5 ft. 5 in. (165.10 cm); 15:05 BP 118 / 91; Pulse 74; Resp 18; Pulse Ox 100% on R/A; Pain 0/10; ld1 14:39 Body Mass Index 31.62 (86.18 kg, 165.10 cm) ph ED Course: 14:32 Patient arrived in ED. ds1 14:34 Faviola Montalvo, CONNOR is Primary Nurse. ld1 14:36 Landon Lynn PA is PHCP. [facility] 14:36 Nitish Perez DO is Attending Physician. [facility] 14:41 Triage completed. ph 14:41 Arm band placed on Patient placed in an exam room. ph 15:05 Patient has correct armband on for positive identification. Bed in low position. Call ld1 light in reach. Side rails up X2. telemetry monitor on. Pulse ox on. NIBP on. Door closed. Noise minimized. Warm blanket given. 15:05 No provider procedures requiring assistance completed. ld1 16:10 Patient did not have IV access during this emergency room visit. ld1 Administered Medications: 15:04 Drug: Tetanus-Diphtheria Toxoid Adult 0.5 ml {Filing Or Registry Clerk: [employer]. Exp: ld1 04/18/2023. Lot #: [id number]. } Route: IM; Site: left deltoid; 15:05 Follow up: Response: No adverse reaction ld1 15:04 Drug: Augmentin (Amoxicillin-Clavulanate) 875 mg Route: PO; ld1 15:05 Follow up: Response: No adverse reaction ld1 Outcome: 15:48 Discharge ordered by . pearl 16:10 Discharged to home ambulatory. ld1 16:10 Condition: stable 16:10 Discharge instructions given to patient, Instructed on discharge instructions, follow up and referral plans. medication usage, Demonstrated understanding of instructions, follow-up care, medications, Prescriptions given X 1. 16:10 Patient left the ED. ld1 Signatures: Landon Lynn PA PA jmm Sanford, Demi ds1 Loren Granda, RN RN Faviola Montalvo RN RN ld1
[2022-01-24 16:16] VITALS: TEMP 98.8
[2022-01-24 16:17] VITALS: BP 118/91; O2SAT 100
== END 2022-01-24 16:10 | disposition home or self-care (01) ==
LOC: ER 14:30
DX: S61.031A Puncture wound without foreign body of right thumb without damage to nail, initial encounter (principal); S61.230A Puncture wound without foreign body of right index finger without damage to nail, initial encounter; S61.232A Puncture wound without foreign body of right middle finger without damage to nail, initial encounter; W54.0XXA Bitten by dog, initial encounter; Z23 Encounter for immunization; F17.210 Nicotine dependence, cigarettes, uncomplicated
CPT/HCPCS: 90471; 90714; 99284